=== PATIENT | male | born 1940 | race Caucasian/White ===

== ENCOUNTER → 2021-03-26 | Outpatient (CLI) | payer MEDICARE, BC ==
[2018-05-25 08:10] VITALS: BP 163/85
[~2021-03-26] MED LIST: AMIT50TA PO; INSU100I13 SQ; LISI1TAB37 PO; LOVA20TA2 PO; METF10007 PO; PIOG30TA41 PO
[2021-03-26] MEDS: IOHEXOL 240 MG/ML 50ML VIAL. PO ONE (15:51)
[2021-03-26] MEDS: IOHEXOL 300 MG/ML 100ML VIAL. IV ONE (15:51)
--- NOTE | 2021-03-26 16:27 | KCIC ---
Exam: CT abdomen/pelvis with intravenous contrast Indication: Epigastric pain. Periumbilical pain for 3 weeks. Comparison: None Technique: Helical CT imaging performed of the abdomen and pelvis after the intravenous administratio n of 100 mL Omnipaque 300 contrast. Sagittal and coronal reformats were obtained. One or more of the following individualized dose reduction techniques were utilized for this examinat ion: 1. Automated exposure control 2. Adjustment of the mA and/or kV according to patient size 3. Use of iterative reconstruction technique. Findings: Lower chest: There are multiple calcified granulomas in the lung bases. Heart is normal in size. Liver: Liver is normal in size and mildly decreased in attenuation. No focal liver lesion. Gallbladder/Biliary Tree: Gallbladder is mildly distended. Prominent common bile duct, likely within normal limits for age. Pancreas: There is diffuse pancreatic atrophy and diffuse dilation of the main pancreatic duct measur ing 8 mm. Suspect a 3.2 x 1.8 cm mass in the uncinate process of the pancreas with mild surrounding f at stranding (image 29, series 2). This abuts the superior mesenteric artery and vein. Spleen: There are calcified splenic granulomas. No splenomegaly. Adrenal Glands: Normal. Kidneys/Ureters/Bladder: Kidneys are normal in size and enhance symmetrically. No hydronephrosis. Ure ters are normal. Mild circumferential bladder wall thickening. Reproductive Organs: Prostate gland is enlarged. Stomach, small bowel, and colon: Stomach is normal. There is no small bowel obstruction. Mild circumf erential wall thickening of the distal rectum. Large volume of stool. Vasculature: Abdominal aorta is normal in caliber. Mild calcified atherosclerosis. Lymph Nodes: There are small mesenteric lymph nodes inferior to the pancreatic head. For example one measuring 5 mm short axis (image 35, series 2). Peritoneum and retroperitoneum: No free fluid or free air Bones: Bones are diffusely demineralized. There is severe lower lumbar facet arthrosis. 3 mm anteroli sthesis of L4 on L5. Probable severe canal narrowing at L4-L5. There is moderate degenerative joint d isease of the hips. Small sclerotic focus in the right pubic bone, nonspecific. Miscellaneous: Small fat-containing left inguinal hernia, possibly post surgical repair. IMPRESSION: 1. Suspect a 3 cm pancreatic head mass. Diffuse atrophy of the rest of the pancreas with moderate di ffuse dilation of the main pancreatic duct measuring [address] or MRI with pancreatic armando col to further evaluate for pancreatic mass. 2. Mild circumferential wall thickening of the distal rectum. This could be due to underdistention o r inflammatory process. Mass not excluded. 3. Enlarged prostate gland. A voice message regarding findings and recommendations was left by Dr. Marshall for Dr. Joy on her nurse's mailbox at 4:23 PM on 03/26/2021. Electronically signed by: Jacqueline Marshall MD (03/26/2021 4:24 PM) [facility]
== END ==
LOC: KCIC CT 13:54
PROVIDERS: ATTEND Family Medicine
DX: N40.0 Benign prostatic hyperplasia without lower urinary tract symptoms (principal); K86.89 Other specified diseases of pancreas; K62.89 Other specified diseases of anus and rectum; J84.10 Pulmonary fibrosis, unspecified; D73.89 Other diseases of spleen; K44.9 Diaphragmatic hernia without obstruction or gangrene; M81.8 Other osteoporosis without current pathological fracture; M47.816 Spondylosis without myelopathy or radiculopathy, lumbar region; M43.16 Spondylolisthesis, lumbar region; M16.0 Bilateral primary osteoarthritis of hip
CPT/HCPCS: 74177; 82565; Q9966; Q9967

== ENCOUNTER → 2021-03-30 | Outpatient (CLI) | payer MEDICARE, BC ==
[2018-05-25 08:10] VITALS: BP 163/85
[~2021-03-30] MED LIST changes: +IOHEXOL 240 MG/ML 50ML VIAL. PO ONE; +IOHEXOL 300 MG/ML 100ML VIAL. IV ONE
--- NOTE | 2021-03-30 15:24 | KCIC ---
EXAM: Abdomen CT with and without intravenous contrast. HISTORY: Pancreatic abnormality on recent CT. TECHNIQUE: Computed tomographic images of the abdomen were obtained prior to and following the admini stration of intravenous contrast. Multiplanar reformatting was performed. *One or more of the following individualized dose reduction techniques were utilized for this examina tion: 1. Automated exposure control. 2. Adjustment of the mA and/or kV according to patient size. 3. Use of iterative reconstruction technique. COMPARISON: 03/26/2021. FINDINGS: Evaluation of the lower thorax demonstrates multiple calcified granulomas. There is a 3 mm noncalcified pleural-based nodule within the right lower lobe and there are 4 mm and 3 mm noncalcifie d pleural-based nodules within the left lower lobe. There is also an 8 mm nodule with slight spiculat ed margins adjacent to a granuloma or a partially calcified granuloma at the left lung base. There is calcification of the aortic valve. There is biliary ductal dilatation and pancreatic ductal dilatation extending to an ill-defined 4.7 c m mass within the pancreatic head and uncinate process. There are multiple surrounding enlarged perip ancreatic lymph nodes. These are subcentimeter in size. The mass abuts but does not appear to encase the superior mesenteric artery and celiac axis. There are splenic granulomas. The spleen is normal in size. The adrenal glands are unremarkable. Ther e is a 1.9 cm simple cyst within the lower pole the right kidney. Follow-up is not routinely performe d for simple cysts. There is no hydronephrosis. There is a large amount of colonic stool. There is no evidence of bowel obstruction. The aorta is normal in caliber. There are degenerative changes involv ing the spine. IMPRESSION: 1. 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 This abuts but does not clearly encase the adjacent superior mesenteric artery a nd celiac axis. There are surrounding peripancreatic lymph nodes which may be metastatic. Correlate w ith CA 19 tumor marker levels. 2. Pancreatic and biliary ductal dilatation due to the aforementioned lesion. 3. Large amount of stool throughout the colon. Correlate for constipation. Note is made that findings involving the rectum on the prior exam are not included on the [id number]. 4. Multiple noncalcified pulmonary nodules, largest which measures 8 mm at the left lung base with ad jacent calcified granuloma. This may result in a partially calcified granuloma. Follow-up in 3 months is recommended. Electronically signed by: Ashwini Wright MD (03/30/2021 3:22 PM) [id number]
== END ==
LOC: KCIC CT 13:27
PROVIDERS: ATTEND Family Medicine
DX: K86.89 Other specified diseases of pancreas (principal); K83.8 Other specified diseases of biliary tract; R91.8 Other nonspecific abnormal finding of lung field; J84.10 Pulmonary fibrosis, unspecified; K56.41 Fecal impaction; I35.1 Nonrheumatic aortic (valve) insufficiency; R59.0 Localized enlarged lymph nodes; N28.1 Cyst of kidney, acquired; M47.819 Spondylosis without myelopathy or radiculopathy, site unspecified
CPT/HCPCS: 74170; Q9966; Q9967